=== PATIENT | female | born 1995 | race Caucasian/White ===

== ENCOUNTER 2023-05-28 21:09 | Emergency (ER) | payer OTHER ==
[~2023-05-28] VITALS: Ht 162.6 cm; Wt 69.0 kg
[2023-05-28 21:15] VITALS: O2SAT 100
[2023-05-28 22:10] VITALS: BP 128/62; PULSE 108; RESP 16; TEMP 98.5
== END 2023-05-29 00:24 | disposition home or self-care (01) ==
LOC: ER 21:09
DX: T78.40XA Allergy, unspecified, initial encounter (principal); X58.XXXA Exposure to other specified factors, initial encounter
CPT/HCPCS: 99283